=== PATIENT | female | born 1985 | race Caucasian/White ===

== ENCOUNTER 2017-11-24 05:44 | Emergency (ER) | payer SELFPAY, OTHER ==
[2017-11-24 08:24] LABS: ADD UMIC YES; UR ASCORBIC ACID NEGATIVE (NEGATIVE); UR BILIRUBIN (Dip) NEGATIVE (NEGATIVE); UR BLOOD (Dip) 2+ mg/dL (NEGATIVE); UR CLARITY CLEAR (CLEAR); UR COLOR YELLOW (YELLOW); UR GLUCOSE (Dip) NEGATIVE (NEGATIVE); UR KETONES (Dip) 1+ mg/dL (NEGATIVE); UR LEUKOCYTE ESTERASE (Dip) 2+ Leu/ul (NEGATIVE); UR MUCUS FEW /HPF (NONE SEEN); UR NITRITE (Dip) NEGATIVE (NEGATIVE); UR RBC 1 /HPF (0-5); UR SPECIFIC GRAVITY (Dip) 1.028 (1.003-1.030); UR SQUAMOUS EPITHELIAL CELL FEW /HPF (FEW); UR TOTAL PROTEIN (Dip) NEGATIVE (NEGATIVE); UR UROBILINOGEN (Dip) NEGATIVE (NEGATIVE); UR WBC 1 /HPF (0-5)
[2017-11-24] MEDS: LIDOCAINE 4% CR TOP (09:50)
[2017-11-24] MEDS: LIDOCAINE 1% (MDV) 10 ML INJ INFIL (09:50)
[2017-11-24] MEDS: CEFTRIAXONE 1 GM INJ IM (11:05)
== END 2017-11-24 11:14 | disposition home or self-care (01) ==
LOC: FTE 11:14
DX: N76.4 Abscess of vulva (principal)
CPT/HCPCS: 56405; 76536; 81001; 81025; 87086; 87591; 96372; 99284-25

== ENCOUNTER 2017-12-07 08:38 | Emergency (ER) | payer SELFPAY | END 2017-12-07 09:44 | disposition home or self-care (01) | LOC: FTE 08:38 | DX: N76.4 Abscess of vulva (principal) | CPT/HCPCS: 99284 ==